=== PATIENT | male | born 1990 | race Caucasian/White ===

== ENCOUNTER 2021-06-06 15:46 | Emergency (ER) | payer MEDICAID ==
[~2021-06-06] VITALS: Ht 190.5 cm; Wt 81.6 kg
[2021-06-06] MEDS ORDERED: SODIUM CHLORIDE 0.9% 1,000 ML IV ONE ×2 (16:00)
[2021-06-06 16:44] LABS: Basophils # (auto) 0 10 ^3/uL (0-0.2); Basophils % (auto) 0.3 % (0.0-2.0); Eosinophils # (auto) 0.4 10 ^3/uL (0-0.8); Eosinophils % (auto) 3.2 % (0.0-7.0); Hematocrit 42.2 % (41.0-53.0); Hemoglobin 13.8 g/dL (13.5-17.5); Lymphocytes # (auto) 1.4 10 ^3/uL (0.4-5.4); Lymphocytes % (auto) 12.6 % (10.0-50.0); Mean Corpuscular Hemoglobin 28.8 pg (28.0-32.0); Mean Corpuscular Hgb Conc. 32.7 g/dL (32.0-36.0); Monocytes # (auto) 0.4 10 ^3/uL (0-1.3); Neutrophils # (auto) 8.9 10 ^3/uL (1.6-8.6); Neutrophils % (auto) 79.9 % (37.0-80.0); Red Blood Cells 4.79 10^6/uL (4.5-5.90); Red Cell Distribution Width 13.7 % (11.8-14.3); White Blood Cell 11.2 10^3/uL (4.4-10.8)
[2021-06-06 16:55] LABS: Chloride 106 mmol/L (98-107); Potassium 3.5 mmol/L (3.5-5.1); Sodium 139 mmol/L (136-145)
[2021-06-06 17:19] LABS: Calcium 8.2 mg/dL (8.5-10.1)
[2021-06-06 17:23] LABS: Alanine Aminotransferase 22 U/L (16-61); Albumin 3.9 g/dL (3.4-5.0); Alkaline Phosphatase 80 U/L (45-117); Aspartate Aminotransferase 16 U/L (15-37); BUN/Creatinine Ratio 11.7; Bilirubin, Total 0.6 mg/dL (0.2-1.0); Blood Urea Nitrogen 9 mg/dL (7-18); Carbon Dioxide 26 mmol/L (21-32); GFR African American 154 mL/min; GFR Non-African American 127 mL/min; Glucose 79 mg/dL (74-106); Total Protein 7.2 g/dL (6.4-8.2)
[2021-06-06 17:35] LABS: Anion Gap 7 (5-15)
[2021-06-06 17:48] VITALS: BP 103/61
== END 2021-06-06 17:59 ==
LOC: EDBD 15:46 → ER 15:46
DX: R55 Syncope and collapse (principal); E86.0 Dehydration; R53.1 Weakness
CPT/HCPCS: 36415; 70450; 80053; 84484; 85025; 96360; 96361; 99284; J7030

== ENCOUNTER 2023-05-11 18:31 | Inpatient (IN) | payer MEDICAID ==
[~2023-05-11] VITALS: Ht 190.5 cm; Wt 77.0 kg
[2023-05-11 20:11] LABS: Albumin 3.5 g/dL (3.4-5.0); Calcium 8.8 mg/dL (8.5-10.1); Potassium 3.8 mmol/L (3.5-5.1)
[2023-05-11 20:12] LABS: Basophils # (auto) 0.1 10 ^3/uL (0-0.2); Basophils % (auto) 0.4 % (0.0-2.0); Eosinophils # (auto) 0.8 10 ^3/uL (0-0.8); Eosinophils % (auto) 6.4 % (0.0-7.0); Hematocrit 42.3 % (41.0-53.0); Lymphocytes % (auto) 15.2 % (10.0-50.0); Mean Corpuscular Hemoglobin 28.5 pg (28.0-32.0); Mean Corpuscular Hgb Conc. 33.1 g/dL (32.0-36.0); Mean Corpuscular Volume 86.3 fL (80.0-100.0); Monocytes # (auto) 0.9 10 ^3/uL (0-1.3); Monocytes % (auto) 7.1 % (0.0-12.0); Neutrophils # (auto) 9.4 10 ^3/uL (1.6-8.6); Neutrophils % (auto) 70.9 % (37.0-80.0); Red Cell Distribution Width 13.3 % (11.8-14.3); White Blood Cell 13.2 10^3/uL (4.4-10.8)
[2023-05-11 20:23] LABS: BUN/Creatinine Ratio 13.5 (10.0-20.0); Bilirubin, Total 0.2 mg/dL (0.2-1.0); CRP High Sensitivity 7.89 mg/dL (< 0.3); Total Protein 8.3 g/dL (6.4-8.2)
[2023-05-11 20:59] LABS: Urine Bacteria MOD /hpf (None Seen); Urine Blood Negative /uL (Negative); Urine Mucus FEW (None Seen); Urine Sperm PRESENT /hpf (None Seen); Urine WBC 4 /hpf (0 - 3)
[2023-05-12] MEDS ORDERED: CLINDAMYCIN HCL 150 MG CAP PO ONE (06:45)
[2023-05-12] MEDS ORDERED: cefTRIAXone 1GM/50ML D5W 50 ML IV ONE (06:45)
[2023-05-12] MEDS ORDERED: ACETAMINOPHEN 325 MG TAB PO PRN (09:15)
[2023-05-12] MEDS: VANCOMYCIN 1GM/250ML 250 ML IV SCH ×2 (10:40→21:50)
[2023-05-12] MEDS ORDERED: CLINDAMYCIN HCL 150 MG CAP PO SCH (12:00)
[2023-05-12] MEDS: CLINDAMYCIN HCL 150 MG CAP PO SCH ×2 (14:02→20:34)
[2023-05-12 22:00] VITALS: BP 97/56
[2023-05-13] MEDS: CLINDAMYCIN HCL 150 MG CAP PO SCH ×4 (01:58→20:19)
[2023-05-13 05:00] VITALS: BP 99/57
[2023-05-13] MEDS: VANCOMYCIN 1GM/250ML 250 ML IV SCH ×2 (06:51→16:52)
[2023-05-13 08:40] LABS: Basophils # (auto) 0.1 10 ^3/uL (0-0.2); Basophils % (auto) 0.8 % (0.0-2.0); Eosinophils % (auto) 10.2 % (0.0-7.0); Hematocrit 41.1 % (41.0-53.0); Hemoglobin 13.8 g/dL (13.5-17.5); Lymphocytes # (auto) 1.6 10 ^3/uL (0.4-5.4); Mean Corpuscular Hgb Conc. 33.6 g/dL (32.0-36.0); Mean Corpuscular Volume 86.3 fL (80.0-100.0); Monocytes # (auto) 0.6 10 ^3/uL (0-1.3); Monocytes % (auto) 6.1 % (0.0-12.0); Neutrophils # (auto) 6.2 10 ^3/uL (1.6-8.6); Neutrophils % (auto) 65.9 % (37.0-80.0); Red Blood Cells 4.76 10^6/uL (4.5-5.90); White Blood Cell 9.4 10^3/uL (4.4-10.8)
[2023-05-13 09:00] VITALS: BP 109/72
[2023-05-13 09:11] LABS: Anion Gap 4 (5-15); Blood Urea Nitrogen 14 mg/dL (7-18); Calcium 8.6 mg/dL (8.5-10.1); Carbon Dioxide 31 mmol/L (21-32); Chloride 102 mmol/L (98-107); Glucose 94 mg/dL (74-106); Potassium 4.4 mmol/L (3.5-5.1); Sodium 137 mmol/L (136-145)
[2023-05-13 09:14] LABS: Alanine Aminotransferase 34 U/L (16-61); Alkaline Phosphatase 89 U/L (45-117); Aspartate Aminotransferase 23 U/L (15-37); BUN/Creatinine Ratio 15.9 (10.0-20.0); Bilirubin, Total < 0.1 mg/dL (0.2-1.0); GFR African American 130 mL/min; GFR Non-African American 107 mL/min; Total Protein 7.3 g/dL (6.4-8.2)
[2023-05-13] MEDS ORDERED: VANCOMYCIN PER PHARMACY 0 MG IV SCH (10:00)
[2023-05-13 13:00] VITALS: BP 99/49
[2023-05-13 16:53] VITALS: BP 119/68
[2023-05-13 22:00] VITALS: BP 91/44
[2023-05-14] MEDS: VANCOMYCIN 1GM/250ML 250 ML IV SCH ×2 (00:44→08:24)
[2023-05-14] MEDS: HYDROcodone-ACET 5/325MG TAB PO PRN ×2 (00:46→16:00)
[2023-05-14] MEDS: CLINDAMYCIN HCL 150 MG CAP PO SCH ×4 (03:05→20:14)
[2023-05-14 05:00] VITALS: BP 94/48
[2023-05-14 09:00] VITALS: BP 114/62
[2023-05-14 13:00] VITALS: BP 98/61
[2023-05-14 17:00] VITALS: BP 109/57
[2023-05-14] MEDS ORDERED: VANCOMYCIN 1GM/250ML 250 ML IV SCH (17:00)
[2023-05-14 22:00] VITALS: BP 103/66
[2023-05-15] MEDS: CLINDAMYCIN HCL 150 MG CAP PO SCH ×2 (01:42→08:18)
[2023-05-15] MEDS: VANCOMYCIN 1GM/250ML 250 ML IV SCH ×3 (01:45→16:52)
[2023-05-15 05:00] VITALS: BP 109/68
[2023-05-15 09:47] VITALS: BP 111/65
[2023-05-15 13:30] VITALS: BP 98/56
[2023-05-15 16:33] VITALS: BP 105/63
[2023-05-15] MEDS: HYDROcodone-ACET 5/325MG TAB PO PRN (16:52)
[2023-05-15 22:00] VITALS: BP 103/59
[2023-05-16] MEDS: VANCOMYCIN 1GM/250ML 250 ML IV SCH ×2 (00:32→09:03)
[2023-05-16 05:00] VITALS: BP 100/52
[2023-05-16] MEDS ORDERED: HYDR-4902 PO (12:00)
[2023-05-16] MEDS ORDERED: BACDST PO (12:00)
== END 2023-05-16 14:00 | disposition home or self-care (01) | DRG 383 ==
LOC: ER 18:31 → OVERFLOW 05-12 09:23 → EAST 05-12 21:40
PROVIDERS: ADMIT Nurse Practitioner Family; ATTEND Internal Medicine
DX: L03.115 Cellulitis of right lower limb (principal); B95.62 Methicillin resistant Staphylococcus aureus infection as the cause of diseases classified elsewhere; Z59.00 Homelessness unspecified; F17.210 Nicotine dependence, cigarettes, uncomplicated
CPT/HCPCS: 36415; 73700; 80053; 80202; 81001; 82565; 83605; 85025; 85652; 86141; 87040; 87077; 87186; 87205; 96365; G0378; J0696

== ENCOUNTER 2023-07-27 20:42 | Emergency (ER) | payer MEDICAID ==
[~2023-07-27] VITALS: Ht 190.5 cm; Wt 81.0 kg
[~2023-07-27 20:42] MED LIST: BACDST PO; HYDR-4902 PO
[2023-07-27] MEDS ORDERED: MORPHINE SULFATE 4 MG/ML SYR/VIAL IV ONE (21:15)
[2023-07-27] MEDS ORDERED: SODIUM CHLORIDE 0.9% 1,000 ML IV ONE (21:15)
[2023-07-27] MEDS ORDERED: ONDANSETRON HCL 4 MG/2 ML VIAL IV ONE (21:15)
[2023-07-27 21:30] VITALS: PULSE 81; RESP 11; TEMP 98.6; O2SAT 96
[2023-07-27] MEDS ORDERED: TRAM50TA2 PO (21:56)
[2023-07-27 21:59] LABS: Basophils # (auto) 0.1 10 ^3/uL (0-0.2); Basophils % (auto) 0.8 % (0.0-2.0); Eosinophils # (auto) 0.5 10 ^3/uL (0-0.8); Eosinophils % (auto) 5.5 % (0.0-7.0); Hematocrit 38.8 % (41.0-53.0); Lymphocytes # (auto) 2.5 10 ^3/uL (0.4-5.4); Lymphocytes % (auto) 29.6 % (10.0-50.0); Mean Corpuscular Hemoglobin 28.9 pg (28.0-32.0); Mean Corpuscular Hgb Conc. 33.5 g/dL (32.0-36.0); Mean Corpuscular Volume 86.3 fL (80.0-100.0); Monocytes # (auto) 0.6 10 ^3/uL (0-1.3); Monocytes % (auto) 6.7 % (0.0-12.0); Neutrophils # (auto) 4.9 10 ^3/uL (1.6-8.6); Neutrophils % (auto) 57.4 % (37.0-80.0); Red Cell Distribution Width 13.4 % (11.8-14.3); White Blood Cell 8.5 10^3/uL (4.4-10.8)
[2023-07-27 22:00] VITALS: BP 107/75; PULSE 72; RESP 10; O2SAT 98
[2023-07-27 22:18] LABS: INR 1.11 (0.9-1.15); Partial Thromboplastin Time 29.1 SEC (24.5-34.5); Prothrombin Time 11.6 sec (9.3-11.8)
[2023-07-27 22:21] LABS: Alanine Aminotransferase 20 U/L (7-40); Albumin 4.1 g/dL (3.2-4.8); Alkaline Phosphatase 76 U/L (46-116); Calcium 8.9 mg/dL (8.5-10.1); Carbon Dioxide 26.6 mmol/L (20-30); Chloride 109 mmol/L (98-107); Glucose 103 mg/dL (74-106); Potassium 3.4 mmol/L (3.5-5.1)
[2023-07-27 22:22] LABS: Anion Gap 5.4 (5-15); Aspartate Aminotransferase 15 U/L (13-40); Bilirubin, Total 0.5 mg/dL (0.2-1.0); Blood Urea Nitrogen 11 mg/dL (9-23); Sodium 141 mmol/L (136-145); Total Protein 6.9 g/dL (5.7-8.2)
== END 2023-07-27 22:33 | disposition home or self-care (01) ==
LOC: ER 20:42
DX: S39.81XA Other specified injuries of abdomen, initial encounter (principal); S09.8XXA Other specified injuries of head, initial encounter; M54.2 Cervicalgia; M54.50 Low back pain, unspecified; M25.561 Pain in right knee; F17.210 Nicotine dependence, cigarettes, uncomplicated; F15.90 Other stimulant use, unspecified, uncomplicated; Z79.1 Long term (current) use of non-steroidal anti-inflammatories (NSAID); Z79.899 Other long term (current) drug therapy; V03.90XA Pedestrian on foot injured in collision with car, pick-up truck or van, unspecified whether traffic or nontraffic accident, initial encounter; Y93.89 Activity, other specified; Y92.481 Parking lot as the place of occurrence of the external cause; Y99.8 Other external cause status
CPT/HCPCS: 36415; 70450; 71250; 72125; 73560; 73610; 74176; 80053; 85025; 85610; 85730; 96361; 96374; 96375; 99285; J2270; J2405; J7030

== ENCOUNTER 2024-09-26 21:18 | Emergency (ER) | payer MEDICAID ==
[~2024-09-26] VITALS: Ht 190.5 cm; Wt 80.4 kg
[~2024-09-26 21:18] MED LIST changes: +TRAM50TA2 PO
[2024-09-26] MEDS ORDERED: CLIN1CAP70 PO (22:21)
[2024-09-26] MEDS ORDERED: IBUP-1456 PO (22:21)
--- NOTE | 2024-09-26 22:21 | ED.PDOC ---
Eye-HPI HPI Comments 33-year-old male presents to ER with complaints of toothache x2 days. Patient reports he started experiencing right upper toothache two days ago with associated right-sided facial swelling x1 day. He rates current right upper toothache pain an 8/10 with radiation towards right side of face. Denies use of medications for current symptoms. Patient presents to ER ambulatory on arrival, with steady gait, in mild distress. Denies fever, body aches, chills, headache, trauma or any further symptoms/complaints Chief Complaint: Jaw Pain Time Seen by MD: 21:43 Primary Care Provider: UNKNOWN Reviewed Notes: Nurses Notes, Medications, Allergies Allergies: Coded Allergies: No Known Drug Allergy (Verified Allergy, Unknown, 06/06/21) Home Meds Active Scripts Ibuprofen (Ibuprofen) 800 Mg Tab, 1 TAB PO TID PRN, #30 TAB 0 Refills Prov:DANY BOUCHER 09/26/24 Clindamycin Hcl (Clindamycin Hcl) 300 Mg Cap, 300 MG PO QID for 7 Days, #28 CAP 0 Refills Prov:ADNY BOUCHER 09/26/24 Tramadol Hcl (Tramadol Hcl) 50 Mg Tab, 50 MG PO Q8HPRN PRN for 5 Days, #15 TAB Prov:ROMAN MCARTHUR MD 07/27/23 Sulfamethoxazole W/Trimethopri (Bactrim Ds Tablet) 1 Tab Tb, 1 TAB PO BID, #28 TAB Prov:BELINDA MARTINEZ MD 05/16/23 Hydrocodone-Acetaminophen (Hydrocodone Bitartrate/AC 5-325 mg) 1 Tab Tab, 1 TAB PO Q6HPRN PRN, #20 TAB Prov:BELINDA MARTINEZ MD 05/16/23 Information Source: Patient Mode of Arrival: Ambulatory Past Medical History PAST MEDICAL HISTORY: Denies Surgical History: Denies all surgeries Family History Family History: Unknown Social History Smoker: Cigarettes, Less Than 1 Pack/Day Alcohol: Denies ETOH Use Drugs: Denies Drug Use Lives In: Homeless Constitutional: denies: chills, diaphoresis, fatigue, fever, malaise, sweats, weakness, others EENTM: reports: others (As stated in HPI) Respiratory: denies: cough, hemoptysis, orthopnea, SOB at rest, shortness of breath, SOB with excertion, stridor, wheezing, others Cardiovascular: denies: chest pain, dizzy spells, diaphoresis, Dyspnea on exertion, edema, irregular heart beat, left arm pain, lightheadedness, palpitations, PND, syncope, others Gastrointestinal: denies: abdomen distended, abdominal pain, blood streaked bowels, constipated, diarrhea, dysphagia, difficulty swallowing, hematemesis, melena, nausea, poor appetite, poor fluid intake, rectal bleeding, rectal pain, vomiting, others Genitourinary: denies: burning, dysuria, flank pain, frequency, hematuria, incontinence, penile discharge, penile sore, pain, testicle pain, testicle swelling, urgency, others Neurological: denies: dizziness, fainting, headache, left sided numbness, left sided weakness, numbness, paresthesia, pre-existing deficit, right sided numbness, right sided weakness, seizure, speech problems, tingling, tremors, weakness, others Musculoskeletal: denies: back pain, gout, joint pain, joint swelling, muscle pain, muscle stiffness, neck pain, others Integumetry: reports: others (As stated in HPI) Allergic/Immunocompromised: denies: Difficulty Healing, Frequent Infections, Hives, Itching, others Hematologic/Lymphatic: denies: anemia, blood clots, easy bleeding, easy bruising, swollen glands, others Endocrine: denies: excessive hunger, excessive sweating, excessive thirst, excessive urination, flushing, intolerance to cold, intolerance to heat, unexplained weight gain, unexplained weight loss, others Psychiatric: denies: anxiety, bipolar disorder, depression, hopeless, panic disorder, schizophrenia, sleepless, suicidal, others Physical Exam General Appearance: Mild Distress (Due to pain) HEENT: PERRL/EOMI, Pharynx Normal, TMs Normal, Other (Broken teeth 16-18 noted with mild surrounding gum swelling/erythema. Mild right sided facial swelling also appreciated, no erythema/further skin changes noted) Neck: Full Range of Motion, Non-Tender, Normal Respiratory: Chest Non-Tender, Lungs Clear, No Accessory Muscle Use, No Respiratory Distress, Normal Breath Sounds Cardiovascular: No Murmur, No Gallop, Regular Rate/Rhythm Breast Exam: Deferred Gastrointestinal: NOT DONE Genitalia: Deferred Pelvic: Deferred Rectal: Deferred Extremities: Normal capillary refill, Normal range of motion Neurologic: Alert, material carrier II-XII nml as Tested, No Motor Deficits, No Sensory Deficits Cerebellar Function: Normal Reflexes: Normal Skin: Dry, Normal Color, Warm Lymphatic: No Adenopathy Was a procedure done? Was a procedure done?: No Sedation Sedation?: No EENT DIFF Eye: N/A Mouth: Thrush, Other (Dental abscess, Ferdinand's angina) X-Ray, Labs, Meds, VS Vital Signs Date Time Temp Pulse Resp B/P (MAP) Pulse Ox O2 Delivery O2 Flow Rate FiO2 09/26/24 23:17 95 20 99 Room Air 09/26/24 23:17 97.8 96 20 145/65 (91) 99 97.8 09/26/24 21:22 98.1 109 20 167/96 (119) 99 Current Medications Medications (Trade) Dose Ordered Sig/Merle Route Start Time Stop Time Status Last Admin Clindamycin Phosphate 50 ml @ 50 mls/hr ONCE ONCE IV 09/26/24 22:30 09/26/24 23:24 DC 09/26/24 22:45 Methylprednisolone Sodium Succinate (Solu Medrol) 125 mg ONCE ONCE IV 09/26/24 22:30 09/26/24 22:31 DC 09/26/24 22:45 Benzocaine (Hurricaine [place]) 1 spr ONCE ONCE MT 09/26/24 22:30 09/26/24 22:31 DC 09/26/24 23:07 Ketorolac Tromethamine (Toradol Injection) 30 mg ONCE ONCE IV 09/26/24 22:30 09/26/24 22:31 DC 09/26/24 22:45 Hep-Lock IV ordered Clindamycin 900 mg IV ordered Solu-Medrol 125 mg IV ordered Toradol 30 mg IV ordered Hurricane spray ordered. Patient educated on proper use/dosage Patient had improvement in symptoms and in no distress prior to discharge Smoking cessation discussed and advised Advised to follow up with PCP and dentist in 1-2 days Patient verbalized understanding and agreeable with current plan of care Advised to return to ER immediately if symptoms worsen Time of 1ST Reevaluation: 21:54 Reevaluation 1ST: N/A Patient Education/Counseling: Diagnosis, Treatment, Prognosis, Need For Follow Up Family Education/Counseling: No Family Present Departure 1 Departure Time of Disposition: 22:14 Impression: Primary Impression: Dental infection Additional Impression: Broken teeth Disposition: 01 HOME / SELF CARE / HOMELESS Condition: Stable e-Prescriptions Ibuprofen (Ibuprofen) 800 Mg Tab 1 TAB PO TID PRN, #30 TAB 0 Refills Prov: DANY BOUCHER 09/26/24 Clindamycin Hcl (Clindamycin Hcl) 300 Mg Cap 300 MG PO QID for 7 Days, #28 CAP 0 Refills Prov: DANY BOUCHER 09/26/24 Discharged With: Self Critical Care Note Critical Care Time?: No Stability Stability form required: No Heart Score Heart Score: Heart Score Response (Comments) Value History N/A 0 EKG N/A 0 Age N/A 0 Risk Factors N/A 0 Troponin N/A 0 Total 0 DANY BOUCHER Sep 26, 2024 22:21
[2024-09-26] MEDS: methylPREDNISolone SOD SUCC 125 MG/2 ML VL IV ONE (22:45)
[2024-09-26] MEDS: KETOROLAC TROMETH 30 MG/ML 1ML VIAL IV ONE (22:45)
[2024-09-26] MEDS: CLINDAMYCIN 900MG IV 50 ML IV ONE (22:45)
[2024-09-26] MEDS: BENZOCAINE (DENTAL) 20 % SPRAY 60ML MT ONE (23:07)
[2024-09-26 23:17] VITALS: BP 145/65; PULSE 95; RESP 20; TEMP 97.8; O2SAT 99
== END 2024-09-26 23:19 | disposition home or self-care (01) ==
LOC: ER 21:18
DX: S02.5XXA Fracture of tooth (traumatic), initial encounter for closed fracture (principal); K04.7 Periapical abscess without sinus; F17.210 Nicotine dependence, cigarettes, uncomplicated; Z79.899 Other long term (current) drug therapy; Z59.00 Homelessness unspecified; X58.XXXA Exposure to other specified factors, initial encounter; Y93.89 Activity, other specified; Y92.89 Other specified places as the place of occurrence of the external cause; Y99.8 Other external cause status
CPT/HCPCS: 96365; 96375; 99284; J1885; J2919; J3490

== ENCOUNTER 2024-12-06 22:02 | Emergency (ER) | payer MEDICAID ==
[~2024-12-06] VITALS: Ht 190.5 cm; Wt 81.8 kg
[~2024-12-06 22:02] MED LIST changes: +CLIN1CAP70 PO; +IBUP-1456 PO
--- NOTE | 2024-12-06 22:23 | ED.PDOC ---
GI ASSESSMENT HPI Comments HPI: Poor Historian. HPI: 34 Y/O M presents to the ED for CC of abdominal pain. Patient states that he has been experiencing epigastric abdominal pain x4days; after washing his mouth out with river water after eating a nasty candy. Patient relays that he has been unable to keep food down and has associated symptoms of nausea, vomiting, and diarrhea. Patient smokes marijuana occasionally, denies smoking tobacco, or ETOH consumption, . Patient denies chills, fever, body-aches, or headache. No other symptoms or modifying factors at this time. Initial Vitals: Temp: 99.3 BP:139/101 HR:108 RR:20 O2 Sat.: 97 Past Medical History: Denies Past Surgical History: Denies Social History: Denies smoking, ETOH, SMOKES MARIJUANA Medication: Denies Allergies: NKDA REVIEW OF SYSTEMS: CONSTITUTIONAL: Denies acute: fever, diaphoresis, chills, generalized weakness. HEAD: Denies acute: headache, photophobia Eyes: Denies acute: Double vision, vision loss, eye pain, eye discharge. EARS: Denies acute: tinnitus, hearing loss, ear discharge, ear pain, THROAT: Denies acute: sore throat, swelling, difficulty swallowing , pain with swallowing, change in voice. NECK: Denies acute: neck pain, neck swelling, stiff neck. HEART: Denies acute : chest pain, palpitations, LUNGS: Denies acute: SOB, wheezing, cough, hemoptysis ABDOMEN: Denies acute: melena , hematemesis, hematochezia SKIN: Denies acute: rash, redness, lesions, itchiness. EXTREMITIES: Denies acute: calf pain, numbness, tingling, weakness, denies pain in extremity. Denies acute: Low back pain. Neuro: Denies acute: focal neurological deficit, motor or sensory focal neurological deficit, tremors, seizure like activity, confusion, dizziness, change in mental status, loss of bowel or bladder function, cauda equina like symptoms. : Denies acute: dysuria, hematuria, flank pain, increase in urinary frequency. PSYCH: Denies acute: hallucination, suicidal ideation, homicidal ideation. PHYSICAL EXAM: General: no acute distress, awake and alert. Head: normocephalic, atraumatic. Neck: supple, trachea is midline, no swelling. Throat: Normal phonation. Eyes:, no erythema, no purulent discharge, no proptosis, no icterus. Heart: regular rate, regular rhythm, no significant murmur appreciated. Lungs: no apparent respiratory distress, Able to speak in full sentences. No wheezing, no rhonchi, no crackles. No stridors Clear to auscultation bilaterally. Abdomen: Epigastric and bilateral upper quadrant tenderness to palpation, non distended, soft, no guarding, no rebound, + bowel sounds. Neuro: Awake, Alert, oriented to name, self, situation, follows commands GCS=15. Speech is normal. Skin: no petechia, no purpura, no cyanosis, non-pale, not jaundice. Lower extremities: --no - Pitting edema no deformity, no focal swelling, no calf TTP. Makes eye contact. moves all four extremities. Face: no apparent facial droop. Ambulating in the ED independently. Time Seen by MD: 10:20 Primary Care Provider: UNKNOWN Reviewed Notes: Nurses Notes, Medications, Allergies Allergies: Coded Allergies: No Known Drug Allergy (Verified Allergy, Unknown, 06/06/21) Home Meds Active Scripts Nitrofurantoin Monohydrate Mac (Macrobid) 100 Mg Cap, 100 MG PO BID for 7 Days, #14 CAP Prov:AMY MITCHELL DO 12/07/24 Ondansetron Odt 4MG Tab (ZOFRAN PO) 4 Mg Tb, 4 MG PO Q8HPRN PRN for 3 Days, #9 TAB ODT TAB-DISSOLVE IN MOUTH, THEN SWALLOW Prov:AMY MITCHELL DO 12/06/24 Ibuprofen (Ibuprofen) 800 Mg Tab, 1 TAB PO TID PRN, #30 TAB 0 Refills Prov:DANY BOUCHER 09/26/24 Clindamycin Hcl (Clindamycin Hcl) 300 Mg Cap, 300 MG PO QID for 7 Days, #28 CAP 0 Refills Prov:DANY BOUCHER 09/26/24 Tramadol Hcl (Tramadol Hcl) 50 Mg Tab, 50 MG PO Q8HPRN PRN for 5 Days, #15 TAB Prov:ROMAN MCARTHUR MD 07/27/23 Sulfamethoxazole W/Trimethopri (Bactrim Ds Tablet) 1 Tab Tb, 1 TAB PO BID, #28 TAB Prov:BELINDA MARTINEZ MD 05/16/23 Hydrocodone-Acetaminophen (Hydrocodone Bitartrate/AC 5-325 mg) 1 Tab Tab, 1 TAB PO Q6HPRN PRN, #20 TAB Prov:BELINDA MARTINEZ MD 05/16/23 Information Source: Patient Was a procedure done? Was a procedure done?: No GI differential Dx Differential Diagnosis: Gastritis/PUD, Gastroenteritis, Electrolyte Imbalance, Food Poisoning, Bacterial, Viral, Other (DDX include but not limited to diverticulitis, colitis, gastroenteritis, acute abdomen, SBO, enteritis, constipation, volvulus, appendicitis, Gallbladder disease, choledocolithiasis, ascending cholangitis, pancreatitis, intraAbdominal mass/neoplasm, hepatitis, UTI, pylonephritis, kidney stone, aneurysm, dissection, Inflammatory bowel disease, gastroparesis, ischemic bowel.) X-Ray, Labs, Meds, VS Vital Signs Date Time Temp Pulse Resp B/P (MAP) Pulse Ox O2 Delivery O2 Flow Rate FiO2 12/07/24 03:08 100 18 98 Room Air* 0 21 12/07/24 01:48 98.2 93 18 133/72 (92) 98 98.2 12/06/24 22:17 99.3 107 20 139/101 (114) 98 Lab Test 12/06/24 23:55 12/06/24 22:48 Range/Units Urine Color Light-yellow Yellow Urine Clarity Clear Clear Urine pH 5.5 5.0-9.0 Urine Specific [place] 1.026 1.001-1.035 Urine Protein Negative Negative Urine Ketones Negative Negative Urine Blood Negative Negative /uL Urine Nitrite Negative Negative Urine Bilirubin Negative Negative Urine Urobilinogen Normal Negative mg/dL Urine Leukocyte Esterase 1+ Negative /uL Urine RBC 3 0 - 3 /hpf Urine Microscopic WBC 16 H 0-3 /HPF Urine Squamous Epithelial Cells None seen <5 /hpf Urine Bacteria Few H None Seen /hpf Urine Sperm Present None Seen /hpf Urine Glucose Normal Normal mg/dL Urine Opiates Screen Neg NEGATIVE Urine Fentanyl Screen Neg NEGATIVE Urine Barbiturates Screen Neg NEGATIVE Urine Phencyclidine Screen Neg NEGATIVE Urine Amphetamines Screen Pos NEGATIVE Urine Benzodiazepines Screen Neg NEGATIVE Urine Cocaine Screen Neg NEGATIVE Urine Cannabinoids Screen Neg NEGATIVE White Blood Count 9.9 4.4-10.8 10^3/uL Red Blood Count 4.91 4.5-5.90 10^6/uL Hemoglobin 14.3 13.5-17.5 g/dL Hematocrit 42.4 41.0-53.0 % Mean Corpuscular Volume 86.4 80.0-100.0 fL Mean Corpuscular Hemoglobin 29.1 28.0-32.0 pg Mean Corpuscular Hemoglobin Concent 33.7 32.0-36.0 g/dL Red Cell Distribution Width 13.6 11.8-14.3 % Platelet Count 215 140-450 10^3/uL Mean Platelet Volume 8.5 6.9-10.8 fL Neutrophils (%) (Auto) 57.3 37.0-80.0 % Lymphocytes (%) (Auto) 25.8 10.0-50.0 % Monocytes (%) (Auto) 10.8 0.0-12.0 % Eosinophils (%) (Auto) 5.7 0.0-7.0 % Basophils (%) (Auto) 0.4 0.0-2.0 % Neutrophils # (Auto) 5.7 1.6-8.6 10 ^3/uL Lymphocytes # (Auto) 2.6 0.4-5.4 10 ^3/uL Monocytes # (Auto) 1.1 0-1.3 10 ^3/uL Eosinophils # (Auto) 0.6 0-0.8 10 ^3/uL Basophils # (Auto) 0 0-0.2 10 ^3/uL Nucleated Red Blood Cells 0.1 % Sodium Level 137 136-145 mmol/L Potassium Level 3.7 3.5-5.1 mmol/L Chloride Level 103 98-107 mmol/L Carbon Dioxide Level 31 20-31 mmol/L Anion Gap 3 L 5-15 Blood Urea Nitrogen 12 9-23 mg/dL Creatinine 0.89 0.700-1.30 mg/dL Glomerular Filtration Rate Calc 116 >90 mL/min BUN/Creatinine Ratio 13.5 10.0-20.0 Serum Glucose 88 74-106 mg/dL Lactic Acid Level 0.8 0.4-2.0 mmol/L Calcium Level 9.8 8.7-10.4 mg/dL Total Bilirubin 0.2 0.2-1.0 mg/dL Aspartate Amino Transferase (AST) 20 13-40 U/L Alanine Aminotransferase (ALT) 17 7-40 U/L Alkaline Phosphatase 117 H 46-116 U/L Troponin I High Sensitivity < 3 L </=54 ng/L Total Protein 7.4 5.7-8.2 g/dL Albumin 4.5 3.2-4.8 g/dL Lipase 41 12-53 U/L [address] [address] Ph: [phone] DIAGNOSTIC IMAGING Diagnostic Imaging Report : [id number] Signed PATIENT: DAX GRUBER ACCT: [id number] UNIT: [id number] : 1990 LOC: ER ROOM / BED: / AGE / SEX: 34 / M ADM STATUS: REG ER SERVICE 15 ORDERING PHYSICIAN: AMY MITCHELL DO PROCEDURE(s): ABPL - CT AB PEL WO CON-NO ORAL OR IV REASON: abd pain ORDER NUMBER(s): [id number], ACCESSION NUMBER(s): [id number] Exam: CT CT AB PEL WO CON-NO ORAL OR IV History: abd pain Comparison Study: None available at time of dictation. TECHNIQUE: Multidetector CT of the abdomen was performed from lung bases to pubic symphysis. Imaging was performed without IV contrast. Axial, coronal and sagittal multiplanar reformats were obtained from the axial data set by the technologist. Radiation Dose Information: CT Dose: CTDI volume is 5.12 mGy. Dose-length product is 272.74 mGy*cm FINDINGS: Evaluation of solid organs is limited due to lack of intravenous contrast use. Findings: Lung Bases: No acute or significant lung base finding. Normal heart size. No pleural or pericardial effusion. Liver: The liver is normal in size. No focal lesions. Gallbladder and Biliary Tree: Unremarkable Spleen: Unremarkable Pancreas: The pancreas is grossly normal in appearance. Adrenal Glands: Unremarkable Kidneys: Kidneys are grossly normal without calculi or hydronephrosis. Bladder: Grossly unremarkable for degree of distention. Bowel: The stomach is grossly normal in appearance. Small bowel and colon are normal in caliber and distribution. The appendix is not visualized; however, no secondary findings of acute appendicitis identified. Ascites: Absent Lymphadenopathy: No mesenteric, retroperitoneal or periportal lymphadenopathy. Abdominal Wall and Mesentery: Unremarkable. Vasculature: The visualized abdominal aorta is normal in size and caliber. Evaluation of abdominal and pelvic vessels is limited due to lack of intravenous contrast. Pelvic Organs: Unremarkable Musculoskeletal: No aggressive focal bony lesions, acute fractures or dislocation. Soft tissues: Unremarkable IMPRESSION: 1. No CT findings to suggest bowel obstruction. There is a moderately large stool burden throughout the colon 2. No nephrolithiasis or hydronephrosis. 3. Gallbladder is contracted with no calcified gallstones Radiation optimization: All CT scans at this facility use at least one of these dose optimization techniques: automated exposure control mA and/or kV adjustment per patient size (includes targeted exams where dose is matched to clinical indication) or iterative reconstruction. ATED BY: DAX SAHA Jr., DO DICTATED DATE/TIME: 12/06/242245 SIGNED BY: DAX SAHA Jr., SIGNED DATE/TIME: 12/06/242245 CC: Time of 1ST Reevaluation: 10:50 Reevaluation 1ST: Unchanged Patient Education/Counseling: Diagnosis, Treatment Family Education/Counseling: Other Comments Patient presented with ABDOMINAL PAIN workup was initiated. Patient was found with the above mentioned diagnosis. the following medications were ordered: ceftriaxone, Protonix, Zofran, IV fluids the following tests were ordered: Troponin, lipase, lactic acid, drug screen, CMP, CBC, CT abdomen/pelvis w/o contrast chest x-ray, EKG, UA Patient ED course and VS have been stabilized. Patient has been reassessed in the ED and remained in a stable condition. Pertinent incidental findings were discussed with the patient and/or family. Patient/family voices understanding and is agreeable with plan. Patient has been observed in the ED adequate length of time to insure improvement/stability. Escalation of care considered: Consideration of escalation to observation or admission Patient was DISCHARGED home in a stable condition. All the reports of any imaging studies that were ordered by myself were reviewed by myself. Additional Information Departure 1 Departure Time of Disposition: 22:54 Impression: Primary Impression: Abdominal pain Additional Impressions: Nausea vomiting and diarrhea Methamphetamine abuse UTI (urinary tract infection) Disposition: HOME / SELF CARE / HOMELESS Condition: Stable Additional Instructions: Additional discharge instructions: You MUST follow-up with your primary care/family doctor in 1 to 2 days. If you are unable to see your primary care/family doctor, please return to our emergency room for re-assessment and re-evaluation in 1 to 2 days. Return to the emergency room here in our facility or to the nearest ER ERIN if your symptoms change or worsen. CONSULTATIONS: you MUST Follow-up for consultation as soon as possible with: -gastroenterology in 1-2 days. Please call for appointment You MUST call the consultants office yourself to make an appointment. You may need to arrange that through your insurance and/or your primary/family doctor. If you are unable to see the sales enablement consultant in 1 to 2 days, you must return to our emergency room (or any other ER of your choice) for re-assessment and re-ev aluation. Adequate fluid hydration. Stop using drugs. Below is a copy of your radiological report for follow up: [place] [address] Ph: [phone] DIAGNOSTIC IMAGING Diagnostic Imaging Report : [id number] Signed PATIENT: DAX GRUBER ACCT: [id number] UNIT: [id number] : 1990 LOC: ER ROOM / BED: / AGE / SEX: 34 / M ADM STATUS: REG ER SERVICE 15 ORDERING PHYSICIAN: AMY MITCHELL DO PROCEDURE(s): ABPL - CT AB PEL WO CON-NO ORAL OR IV REASON: abd pain ORDER NUMBER(s): [id number], ACCESSION NUMBER(s): [id number] Exam: CT CT AB PEL WO CON-NO ORAL OR IV History: abd pain Comparison Study: None available at time of dictation. TECHNIQUE: Multidetector CT of the abdomen was performed from lung bases to pubic symphysis. Imaging was performed without IV contrast. Axial, coronal and sagittal multiplanar reformats were obtained from the axial data set by the technologist. Radiation Dose Information: CT Dose: CTDI volume is 5.12 mGy. Dose-length product is 272.74 mGy*cm FINDINGS: Evaluation of solid organs is limited due to lack of intravenous contrast use. Findings: Lung Bases: No acute or significant lung base finding. Normal heart size. No pleural or pericardial effusion. Liver: The liver is normal in size. No focal lesions. Gallbladder and Biliary Tree: Unremarkable Spleen: Unremarkable Pancreas: The pancreas is grossly normal in appearance. Adrenal Glands: Unremarkable Kidneys: Kidneys are grossly normal without calculi or hydronephrosis. Bladder: Grossly unremarkable for degree of distention. Bowel: The stomach is grossly normal in appearance. Small bowel and colon are normal in caliber and distribution. The appendix is not visualized; however, no secondary findings of acute appendicitis identified. Ascites: Absent Lymphadenopathy: No mesenteric, retroperitoneal or periportal lymphadenopathy. Abdominal Wall and Mesentery: Unremarkable. Vasculature: The visualized abdominal aorta is normal in size and caliber. Evaluation of abdominal and pelvic vessels is limited due to lack of intravenous contrast. Pelvic Organs: Unremarkable Musculoskeletal: No aggressive focal bony lesions, acute fractures or dislocation. Soft tissues: Unremarkable IMPRESSION: 1. No CT findings to suggest bowel obstruction. There is a moderately large stool burden throughout the colon 2. No nephrolithiasis or hydronephrosis. 3. Gallbladder is contracted with no calcified gallstones Radiation optimization: All CT scans at this facility use at least one of these dose optimization techniques: automated exposure control mA and/or kV a djustment per patient size (includes targeted exams where dose is matched to clinical indication) or iterative reconstruction. ATED BY: DAX SAHA Jr., DO DICTATED DATE/TIME: 12/06/242245 SIGNED BY: DAX SAHA Jr., SIGNED DATE/TIME: 12/06/242245 CC: e-Prescriptions Nitrofurantoin Monohydrate Mac (Macrobid) 100 Mg Cap 100 MG PO BID for 7 Days, #14 CAP Prov: AMY MITCHELL DO 12/07/24 Ondansetron Odt 4MG Tab (ZOFRAN PO) 4 Mg Tb 4 MG PO Q8HPRN PRN for 3 Days, #9 TAB ODT TAB-DISSOLVE IN MOUTH, THEN SWALLOW Prov: AMY MITCHELL DO 12/06/24 Discharged With: Self Critical Care Note Critical Care Time?: No Heart Score Heart Score: Heart Score Response (Comments) Value History N/A 0 EKG N/A 0 Age N/A 0 Risk Factors N/A 0 Troponin N/A 0 Total 0 I personally scribed for AMY MITCHELL DO ([email or web address]) on 12/06/24 at 22:23. Electronically submitted by Allison Vallecillo ([email or web address]). I personally scribed for AMY MITCHELL DO ([email or web address]) on 12/06/24 at 22:30. Electronically submitted by Allison Vallecillo ([email or web address]). I personally scribed for AMY MITCHELL DO ([email or web address]) on 12/07/24 at 00:10. Electronically submitted by Jj Bundy ([email or web address]). I personally scribed for AMY MITCHELL DO ([email or web address]) on 12/07/24 at 01:42. Electronically submitted by Jj Bundy ([email or web address]). AMY MITCHELL DO Dec 06, 2024 22:23
--- NOTE | 2024-12-06 22:49 | DVH ---
Exam: CT CT AB PEL WO CON-NO ORAL OR IV History: abd pain Comparison Study: None available at time of dictation. TECHNIQUE: Multidetector CT of the abdomen was performed from lung bases to pubic symphysis. Imaging was performed without IV contrast. Axial, coronal and sagittal multiplanar reformats were obtained fr om the axial data set by the technologist. Radiation Dose Information: CT Dose: CTDI volume is 5.12 mGy. Dose-length product is 272.74 mGy*cm FINDINGS: Evaluation of solid organs is limited due to lack of intravenous contrast use. Findings: Lung Bases: No acute or significant lung base finding. Normal heart size. No pleural or pericardial effusion. Liver: The liver is normal in size. No focal lesions. Gallbladder and Biliary Tree: Unremarkable Spleen: Unremarkable Pancreas: The pancreas is grossly normal in appearance. Adrenal Glands: Unremarkable Kidneys: Kidneys are grossly normal without calculi or hydronephrosis. Bladder: Grossly unremarkable for degree of distention. Bowel: The stomach is grossly normal in appearance. Small bowel and colon are normal in caliber and d istribution. The appendix is not visualized; however, no secondary findings of acute appendicitis id entified. Ascites: Absent Lymphadenopathy: No mesenteric, retroperitoneal or periportal lymphadenopathy. Abdominal Wall and Mesentery: Unremarkable. Vasculature: The visualized abdominal aorta is normal in size and caliber. Evaluation of abdominal a nd pelvic vessels is limited due to lack of intravenous contrast. Pelvic Organs: Unremarkable Musculoskeletal: No aggressive focal bony lesions, acute fractures or dislocation. Soft tissues: Unremarkable IMPRESSION: 1. No CT findings to suggest bowel obstruction. There is a moderately large stool burden throughout t he colon 2. No nephrolithiasis or hydronephrosis. 3. Gallbladder is contracted with no calcified gallstones Radiation optimization: All CT scans at this facility use at least one of these dose optimization camryn hniques: automated exposure control mA and/or kV adjustment per patient size (includes targeted exam s where dose is matched to clinical indication) or iterative reconstruction.
[2024-12-06] MEDS ORDERED: ZOFR4T PO (22:56)
[2024-12-06 23:06] LABS: Basophils # (auto) 0 10 ^3/uL (0-0.2); Basophils % (auto) 0.4 % (0.0-2.0); Eosinophils # (auto) 0.6 10 ^3/uL (0-0.8); Eosinophils % (auto) 5.7 % (0.0-7.0); Hematocrit 42.4 % (41.0-53.0); Hemoglobin 14.3 g/dL (13.5-17.5); Lymphocytes # (auto) 2.6 10 ^3/uL (0.4-5.4); Lymphocytes % (auto) 25.8 % (10.0-50.0); Mean Corpuscular Hemoglobin 29.1 pg (28.0-32.0); Mean Corpuscular Hgb Conc. 33.7 g/dL (32.0-36.0); Mean Corpuscular Volume 86.4 fL (80.0-100.0); Monocytes # (auto) 1.1 10 ^3/uL (0-1.3); Monocytes % (auto) 10.8 % (0.0-12.0); Neutrophils # (auto) 5.7 10 ^3/uL (1.6-8.6); Neutrophils % (auto) 57.3 % (37.0-80.0); Nucleated Red Blood Cells % 0.1 %; Platelet Count (auto) 215 10^3/uL (140-450); Red Blood Cells 4.91 10^6/uL (4.5-5.90); Red Cell Distribution Width 13.6 % (11.8-14.3); White Blood Cell 9.9 10^3/uL (4.4-10.8)
[2024-12-06 23:21] LABS: Alanine Aminotransferase 17 U/L (7-40); Albumin 4.5 g/dL (3.2-4.8); Anion Gap 3 (5-15); Aspartate Aminotransferase 20 U/L (13-40); BUN/Creatinine Ratio 13.5 (10.0-20.0); Blood Urea Nitrogen 12 mg/dL (9-23); Calcium 9.8 mg/dL (8.7-10.4); Chloride 103 mmol/L (98-107); Glucose 88 mg/dL (74-106); Lipase 41 U/L (12-53); Potassium 3.7 mmol/L (3.5-5.1); Sodium 137 mmol/L (136-145)
[2024-12-06 23:22] LABS: Alkaline Phosphatase 117 U/L (46-116); Bilirubin, Total 0.2 mg/dL (0.2-1.0); Carbon Dioxide 31 mmol/L (20-31); Total Protein 7.4 g/dL (5.7-8.2)
[2024-12-07 00:13] LABS: Cannabinoid Screen, Urine Neg (NEGATIVE)
[2024-12-07 00:14] LABS: Amphetamine Screen, Urine Pos (NEGATIVE); Barbiturate Scree,Urine Neg (NEGATIVE); Benzodiazephine Screen, Urine Neg (NEGATIVE); Cocaine Screen, Urine Neg (NEGATIVE); Opiate Scree,Urine Neg (NEGATIVE); Phencyclidine Screen, Urine Neg (NEGATIVE)
[2024-12-07 00:16] LABS: Urine Bacteria FEW /hpf (None Seen); Urine Blood Negative /uL (Negative); Urine Clarity Clear (Clear); Urine Color Light-Yellow (Yellow); Urine Protein, UAD Negative (Negative); Urine Specific Gravity 1.026 (1.001-1.035); Urine Sperm PRESENT /hpf (None Seen); Urine Squamous Epithelial Cell None Seen /hpf (<5); Urine Urobilinogen Normal (Negative); Urine WBC 16 /HPF (0-3); Urine pH 5.5 (5.0-9.0)
[2024-12-07] MEDS ORDERED: NITR-87 PO (00:39)
[2024-12-07] MEDS: cefTRIAXone 1GM/50ML D5W 50 ML IV ONE (00:45)
[2024-12-07] MEDS: SODIUM CHLORIDE 0.9% 1,000 ML IV ONE (00:45)
[2024-12-07 01:48] VITALS: BP 133/72; TEMP 98.2
[2024-12-07] MEDS: ONDANSETRON HCL 4 MG/2 ML VIAL IV ONE (02:19)
[2024-12-07] MEDS: PANTOPRAZOLE 40 MG/10 ML VIAL INJ IV ONE (02:20)
[2024-12-07 03:08] VITALS: PULSE 100; RESP 18; O2SAT 98
== END 2024-12-07 03:13 | disposition home or self-care (01) ==
LOC: ER 22:02
DX: N39.0 Urinary tract infection, site not specified (principal); F12.90 Cannabis use, unspecified, uncomplicated; F15.10 Other stimulant abuse, uncomplicated; Z79.899 Other long term (current) drug therapy
CPT/HCPCS: 36415; 74176; 80053; 80307; 81001; 83605; 83690; 84484; 85025; 96365; 96366; 96375; 99285; J0696; J2405; J2470; J7030